=== PATIENT | male | born 1965 | race Caucasian/White ===

== ENCOUNTER 2017-08-19 07:39 | Day surgery (SDC) | payer OTHER ==
[~2017-08-19] VITALS: Ht 177.8 cm; Wt 89.8 kg
[~2017-08-19 07:39] MED LIST: HYDACE5 PO; ZYRTEC10 M1 PO; [UNRECOGNIZED DRUG - REMARK]
[2017-08-19] MEDS ORDERED: METO25ER PO (08:17)
[2017-08-19] MEDS ORDERED: METF500 PO (08:18)
[2017-08-19] MEDS ORDERED: BACL10 PO (08:18)
[2017-08-19] MEDS ORDERED: HYDR-86 (08:18)
[2017-08-19] MEDS ORDERED: PRAZ1 PO (08:19)
[2017-08-19] MEDS ORDERED: Omeprazole20 M1 (08:19)
== END 2017-08-19 09:41 | disposition home or self-care (01) ==
LOC: ORSCSDS 07:39
PROVIDERS: Internal Medicine Gastroenterology
PROC: 0DBP8ZX Excision of Rectum, Via Natural or Artificial Opening Endoscopic, Diagnostic (ICD-10-PCS; principal; 2017-08-19 08:45)
PROC: 0DBE8ZX Excision of Large Intestine, Via Natural or Artificial Opening Endoscopic, Diagnostic (ICD-10-PCS; principal; 2017-08-19 08:45)
DX: Z12.11 Encounter for screening for malignant neoplasm of colon (principal); K62.1 Rectal polyp; K64.8 Other hemorrhoids; K57.30 Diverticulosis of large intestine without perforation or abscess without bleeding; E11.9 Type 2 diabetes mellitus without complications; I10 Essential (primary) hypertension; Z79.84 Long term (current) use of oral hypoglycemic drugs; Z79.899 Other long term (current) drug therapy
CPT/HCPCS: 82947; 88305; J7120

== ENCOUNTER → 2017-09-05 | Outpatient (CLI) | payer OTHER ==
[~2017-09-05] MED LIST changes: +BACL10 PO; +HYDR-86; +METF500 PO; +METO25ER PO; +Omeprazole20 M1; +PRAZ1 PO
[2017-09-05 10:00] LABS: Adenovirus F 40/41 Not Detected (NOT DETECT); Astrovirus Not Detected (NOT DETECT); Campylobacter Sp Not Detected (NOT DETECT); Cryptosporidium Not Detected (NOT DETECT); Cyclospora Cayetanensis Not Detected (NOT DETECT); E. Coli O157 Not Detected (NOT DETECT); Entamoeba Histolytica Not Detected (NOT DETECT); Enteroaggregative E. coli-EAEC Not Detected (NOT DETECT); Enteropathogenic E. coli-EPEC Not Detected (NOT DETECT); Enterotoxigenic E. coli-ETEC Not Detected (NOT DETECT); Giardia Lamblia Not Detected (NOT DETECT); Norovirus GI/GII Not Detected (NOT DETECT); Plesiomonas Shigelloides Not Detected (NOT DETECT); Rotavirus A Not Detected (NOT DETECT); Salmonella Sp Not Detected (NOT DETECT); Sapovirus Not Detected (NOT DETECT); Shiga Toxin-prod E. coli-STEC Not Detected (NOT DETECT); Shigella/Enteroin E. coli-EIEC Not Detected (NOT DETECT); Vibrio Cholerae Not Detected (NOT DETECT); Vibrio Sp Not Detected (NOT DETECT); Yersinia Enterocolitica Not Detected (NOT DETECT)
== END ==
LOC: LAB 09:57
PROVIDERS: Internal Medicine Gastroenterology
DX: R19.7 Diarrhea, unspecified (principal)
CPT/HCPCS: 87507

== ENCOUNTER 2020-08-08 15:57 | Emergency (ER) | payer BC, OTHER ==
[~2020-08-08] VITALS: Ht 177.8 cm; Wt 93.0 kg
[2020-08-08 16:29] LABS: BASOPHILS ABSOLUTE AUTO 0.02 K/mm3 (0.00-0.23); BASOPHILS PERCENT AUTO 0 % (0-2); EOSINOPHILS ABSOLUTE AUTO 0.19 K/mm3 (0.00-0.68); EOSINOPHILS PERCENT AUTO 2 % (0-6); Hematocrit 40.3 % (37.0-53.0); Hemoglobin 14.3 g/dL (13.5-17.5); IMMATURE GRAN ABSOLUTE AUTO 0.04 K/mm3 (0.00-0.10); IMMATURE GRAN PERCENT AUTO 1 % (0-1); LYMPHOCYTES ABSOLUTE AUTO 1.45 K/mm3 (0.84-5.20); LYMPHOCYTES PERCENT AUTO 18 % (21-46); MONOCYTES ABSOLUTE AUTO 0.67 K/mm3 (0.16-1.47); MONOCYTES PERCENT AUTO 8 % (4-13); Mean Corpuscular HGB 34.5 pg (26.0-34.0); Mean Corpuscular HGB Conc 35.5 g/dL (31.5-36.5); Mean Corpuscular Volume 97 fL (80-100); Mean Platelet Volume 9.5 fL (9.1-12.4); NEUTROPHILS ABSOLUTE AUTO 5.89 K/mm3 (1.96-9.15); NEUTROPHILS PERCENT AUTO 71 % (41-73); Platelet Count 309 K/mm3 (150-400); RDW Coefficient Variation 11.6 % (11.7-14.2); RDW Standard Deviation 41.3 fL (35.1-46.3); Red Blood Cell Count 4.15 M/mm3 (4.30-5.90); White Blood Cell Count 8.26 K/mm3 (4.00-11.30)
[2020-08-08 16:53] LABS: Alanine Aminotransfer (ALT/SGP 47 U/L (12-78); Albumin, Blood 3.6 g/dL (3.4-5.0); Albumin/Globulin Ratio 0.9 (0.8-1.8); Alk Phos 96 U/L (50-136); Anion Gap 11 mmol/L (6-16); Aspartate Aminotrans (AST/SGOT 22 U/L (12-37); Bilirubin, Total 0.6 mg/dL (0.1-1.0); Blood Urea Nitrogen 16 mg/dL (8-24); Bun/Creatinine Ratio 23.8 (12.0-20.0); CO2, Blood 25 mmol/L (21-32); Calcium, Blood 10.9 mg/dL (8.5-10.1); Chloride, Blood 95 mmol/L (98-108); Creatinine, Blood 0.67 mg/dL (0.60-1.20); Globulin, Blood 3.8 g/dL (2.2-4.0); Glomerular Filtration Rate >60 (60-); Glucose, Blood 199 mg/dL (70-99); Potassium, Blood 3.8 mmol/L (3.5-5.5); Sodium, Blood 131 mmol/L (136-145); Total Protein, Blood 7.4 g/dL (6.4-8.2); Troponin I <0.015 ng/mL (0.000-0.040)
[2020-08-08] MEDS ORDERED: LOSARTAN POTASS25 M2 PO (17:27)
[2020-08-08] MEDS ORDERED: METOPROLOL TART50 M2 PO (17:28)
[2020-08-08] MEDS ORDERED: NEURONTIN300 MG PO (17:29)
[2020-08-08] MEDS ORDERED: OMEPRAZOLE MAGN20 MG PO (20:54)
== END 2020-08-08 21:20 | disposition home or self-care (01) ==
LOC: ER 15:57
PROVIDERS: Physician Assistant
DX: R07.9 Chest pain, unspecified (principal); I10 Essential (primary) hypertension; Z87.19 Personal history of other diseases of the digestive system; Z79.84 Long term (current) use of oral hypoglycemic drugs; Z79.899 Other long term (current) drug therapy
CPT/HCPCS: 36415; 71046; 80053; 84484; 85025; 93005; 93010; 96374; 99285-25; A9270; J1170; J2405

== ENCOUNTER 2024-12-31 11:13 | Day surgery (SDC) | payer BC ==
[~2024-12-31] VITALS: Ht 177.8 cm; Wt 104.0 kg
[~2024-12-31 11:13] MED LIST changes: +ACET500 PO; +ATOR40TA PO; +Bupivacaine 0.5% W/EPI 1:200000 SDV 30 ML Vial ONE; +CATAPRES0.1 MG PO; +COLESTID1 G1; +FURO40 PO; +GLIM2 PO; +KLOR-CON 1010 ME9 PO; +LOSARTAN POTASS25 M2 PO; +METOPROLOL TART50 M2 PO; +NEURONTIN300 MG PO; +OMEPRAZOLE MAGN20 MG PO; +PSEU120ER PO; +Prinivil10 MG PO; +TRELEGY ELLIPT1 EACH IH
[2024-12-31] MEDS ORDERED: EZETIMIBE10 M6 PO (11:50)
[2024-12-31] MEDS ORDERED: CARVEDILOL25 M9 PO (11:52)
[2024-12-31] MEDS ORDERED: VITAMIN D325 MC3 PO (11:52)
[2024-12-31] MEDS ORDERED: PROBIOTIC1 EA14 PO (11:53)
[2024-12-31] MEDS ORDERED: B-100 COMPLEX100 MG PO (11:53)
[2024-12-31] MEDS ORDERED: CeFAZolin Sodium 2,000 MG VIAL ONE (12:01)
[2024-12-31] MEDS ORDERED: HYDROmorphone HCl/Pf 1MG SYR ONE (12:15)
--- NOTE | 2024-12-31 12:31 | NUR ---
12/31/24 1231 Nissa Hutchinson 1228: 1000 MG TYLENOL PO PER ORDER BY DR VEE
[2024-12-31] MEDS ORDERED: Metoclopramide HCl 5MG / ML 2ML Vial ONE (12:41)
[2024-12-31] MEDS ORDERED: Ondansetron HCl 2 MG / ML 2ML Vial ONE (12:41)
[2024-12-31] MEDS ORDERED: Dexamethasone Sod Phos 10 MG/ML 1ML VIAL ONE (12:41)
[2024-12-31] MEDS ORDERED: Ketorolac Tromethamine 30mg Vial ONE (12:46)
[2024-12-31 15:06] VITALS: BP 161/79
--- NOTE | 2024-12-31 16:08 | NUR ---
12/31/24 1608 Gavino Gallagher PT REPORTED tolerable 4/10 PAIN UPON D/C. HE DENIED NAUSEA AND EXPRESSED READINESS TO RETURN HOME. DR. VEE WAS CONSULTED REGARDING VITALS AND HEART RHYTHM AND APPROVED D/C. PT DENIED DIZZINESS, SOB, CP, NAUSEA, WEAKNESS, AND OTHER CARDIORESPIRATORY SYMPTOMS THROUGHOUT STAY IN SDU.
== END 2024-12-31 15:50 | disposition home or self-care (01) ==
LOC: ORSCSDS 11:13
PROVIDERS: Podiatrist Foot & Ankle Surgery
PROC: 0SGM04Z Fusion of Right Metatarsal-Phalangeal Joint with Internal Fixation Device, Open Approach (ICD-10-PCS; principal; 2024-12-31 12:45)
PROC: 0QBN0ZZ Excision of Right Metatarsal, Open Approach (ICD-10-PCS; principal; 2024-12-31 12:45)
DX: M20.21 Hallux rigidus, right foot (principal); T84.84XD Pain due to internal orthopedic prosthetic devices, implants and grafts, subsequent encounter; I10 Essential (primary) hypertension; J45.909 Unspecified asthma, uncomplicated; K21.9 Gastro-esophageal reflux disease without esophagitis; E78.5 Hyperlipidemia, unspecified; E11.9 Type 2 diabetes mellitus without complications; Z79.84 Long term (current) use of oral hypoglycemic drugs; Z79.899 Other long term (current) drug therapy
CPT/HCPCS: 82947; A6253; A9270; C1713; J0690; J1100; J1171; J1885; J2405; J2704; J2765